=== PATIENT | female | born 1985 | race Asian ===

== ENCOUNTER 2017-01-02 16:44 | Emergency (ER) | payer OTHER ==
[~2017-01-02] VITALS: Ht 149.9 cm; Wt 95.3 kg
== END 2017-01-02 17:48 | disposition home or self-care (01) ==
LOC: ED 16:44
DX: S70.361A Insect bite (nonvenomous), right thigh, initial encounter (principal); W57.XXXA Bitten or stung by nonvenomous insect and other nonvenomous arthropods, initial encounter; Y92.098 Other place in other non-institutional residence as the place of occurrence of the external cause
CPT/HCPCS: 99282

== ENCOUNTER 2017-06-14 09:57 | Emergency (ER) | payer OTHER ==
[~2017-06-14] VITALS: Ht 160 cm; Wt 81.6 kg
== END 2017-06-14 11:00 | disposition home or self-care (01) ==
LOC: ED 09:57
DX: H10.12 Acute atopic conjunctivitis, left eye (principal)
CPT/HCPCS: 99281

== ENCOUNTER 2017-07-20 06:24 | Emergency (ER) | payer OTHER ==
[~2017-07-20] VITALS: Ht 162.6 cm; Wt 99.8 kg
[2017-07-20 07:37] LABS: PLATELET COUNT 376 K/uL (152-353)
[2017-07-20 07:40] LABS: POTASSIUM 4.3 mmol/L (3.6-5.2)
[2017-07-20 08:34] VITALS: BP 109/79; TEMP 97.9
== END 2017-07-20 08:34 | disposition home or self-care (01) ==
LOC: ED 06:24
DX: R11.2 Nausea with vomiting, unspecified (principal)
CPT/HCPCS: 36415; 74022; 80053; 82150; 83690; 85027; 99283

== ENCOUNTER 2018-07-26 20:26 | Emergency (ER) | payer OTHER ==
[~2018-07-26] VITALS: Ht 152.4 cm; Wt 95.3 kg
[2018-07-26 21:21] LABS: PLATELET COUNT 402 K/uL (152-353)
[2018-07-26 21:22] LABS: POTASSIUM 3.8 mmol/L (3.6-5.2); SODIUM 142 mmol/L (136-145)
[2018-07-26 22:00] VITALS: BP 132/72; TEMP 97.6
== END 2018-07-26 22:00 | disposition home or self-care (01) ==
LOC: ED 20:26
PROVIDERS: Internal Medicine
DX: M94.0 Chondrocostal junction syndrome [Tietze] (principal); R07.89 Other chest pain
CPT/HCPCS: 36415; 80053; 82550; 84484; 85027; 96374; 99284; J1885

== ENCOUNTER 2018-10-05 14:06 | Emergency (ER) | payer BC ==
[~2018-10-05] VITALS: Ht 152.4 cm; Wt 95.3 kg
[2018-10-05 14:20] VITALS: TEMP 97.9
[2018-10-05 16:38] VITALS: BP 127/62
== END 2018-10-05 16:38 | disposition home or self-care (01) ==
LOC: ED 14:06
DX: S00.83XA Contusion of other part of head, initial encounter (principal); W22.8XXA Striking against or struck by other objects, initial encounter; Y92.89 Other specified places as the place of occurrence of the external cause
CPT/HCPCS: 99283